=== PATIENT | male | born 1985 | race Caucasian/White ===

== ENCOUNTER 2021-02-01 22:49 | Observation (INO) ==
[2021-02-01] MEDS ORDERED: SODIUM CHLORIDE 0.9% 1,000 ML IV STA (23:12)
[2021-02-01] MEDS ORDERED: MORPHINE 4 MG/1 ML VIAL IV ONE (23:12)
[2021-02-01] MEDS ORDERED: ONDANSETRON 4 MG/2 ML VIAL IV ONE (23:12)
[2021-02-01 23:45] LABS: Basophils % 0.5 % (0.0-0.8); Eosinophils # 0.3 10*3/uL (0.0-0.87); Eosinophils % 3.9 % (0.00-10.9); Hematocrit 42.8 VOL% (42.0-52.0); Immature Granulocytes % 0.3 %; Immature Granulocytes Absolute 0.02 #; Lymphocytes # 1.8 10*3/uL (1.4-4.0); Lymphocytes % 22.8 % (21.2-54.2); Mean Corpuscular HGB Conc 32.7 GM/DL (32-36); Mean Platelet Volume 9.2 FL (9.6-12.0); Monocytes % 11.5 % (1.7-12.7); Platelet Count 292 T/CUMM (130-400); Red Blood Count 4.65 MC/CUMM (3.8-5.5); Red Cell Distribution Width 12.5 % (9.3-17.3)
[2021-02-02 00:08] LABS: Alanine Aminotransferase 24 U/L (16-61); Albumin 3.5 G/DL (3.4-5.0); Alkaline Phosphatase 92 U/L (45-117); Aspartate Amino Transferase 13 U/L (0-37); Bilirubin,Total < 0.39 MG/DL (0.2-1.0); Blood Urea Nitrogen 10 MG/DL (7-18); Calcium 8.6 MG/DL (8.5-10.1); Carbon Dioxide 28 MMOL/L (21-32); Estimated Glom Filtration Rate 136 ML/MIN; Glucose 113 MG/DL (74-106); Osmolality,Calculated 278.4 MOS/KG (273-304); Potassium 3.5 MMOL/L (3.5-5.1); Sodium 140 MMOL/L (136-145); Total Protein 7.2 G/DL (6.4-8.2)
[2021-02-02 01:09] LABS: Bilirubin,Urine Negative (Negative); Blood, Urine Negative (Negative); Glucose,Urine (UA) Negative (Negative); Ketones,Urine Negative (Negative); Mucus,Urine Occasional /LPF (Occasional); Nitrite,Urine Negative (Negative); Protein,Urine Negative; Urine Appearance CLEAR (Clear); Urine Color Yellow (Yellow); Urine Specific Gravity 1.012 (1.001-1.035); Urine Urobilinogen < 2.0 EU/DL (0.2-1.0)
[2021-02-02] MEDS ORDERED: ONDANSETRON 4 MG/2 ML VIAL IV PRN (01:53)
[2021-02-02] MEDS ORDERED: ACETAMINOPHEN 325 MG TABLET PO PRN (01:53)
[2021-02-02 04:40] LABS: Basophils % 0.5 % (0.0-0.8); Eosinophils # 0.2 10*3/uL (0.0-0.87); Eosinophils % 3.5 % (0.00-10.9); Hematocrit 39.5 VOL% (42.0-52.0); Hemoglobin 13.1 GM/DL (14.0-18.0); Immature Granulocytes % 0.2 %; Immature Granulocytes Absolute 0.01 #; Lymphocytes # 1.9 10*3/uL (1.4-4.0); Lymphocytes % 29.1 % (21.2-54.2); Mean Corpuscular HGB Conc 33.2 GM/DL (32-36); Mean Corpuscular Volume 91.4 FL (87-102); Monocytes % 11.5 % (1.7-12.7); Neutrophils % 55.2 % (38.7-73.9); Platelet Count 259 T/CUMM (130-400); Red Blood Count 4.32 MC/CUMM (3.8-5.5); Red Cell Distribution Width 12.5 % (9.3-17.3); White Blood Count 6.5 T/CUMM (4-12)
[2021-02-02 04:58] LABS: Alanine Aminotransferase 22 U/L (16-61); Alkaline Phosphatase 73 U/L (45-117); Aspartate Amino Transferase 9 U/L (0-37); Bilirubin,Total < 0.39 MG/DL (0.2-1.0); Blood Urea Nitrogen 9 MG/DL (7-18); Calcium 7.7 MG/DL (8.5-10.1); Carbon Dioxide 28 MMOL/L (21-32); Estimated Glom Filtration Rate 136 ML/MIN; Glucose 83 MG/DL (74-106); Osmolality,Calculated 278.3 MOS/KG (273-304); Potassium 4.2 MMOL/L (3.5-5.1); Sodium 141 MMOL/L (136-145); Total Protein 6.3 G/DL (6.4-8.2)
[2021-02-02] MEDS: LACTATED RINGERS 1,000 ML IV SCH ×3 (05:00→17:21)
[2021-02-02] MEDS: MORPHINE 4 MG/1 ML VIAL IV PRN ×3 (05:26→17:22)
[2021-02-02] MEDS: PANTOPRAZOLE 40 MG TABLET PO SCH (09:52)
[2021-02-02] MEDS: oxyCODONE/ACETAMINOPHEN 5-325 MG TABLET PO PRN ×2 (14:16→23:06)
[2021-02-03] MEDS: MORPHINE 4 MG/1 ML VIAL IV PRN (00:35)
[2021-02-03] MEDS: LACTATED RINGERS 1,000 ML IV SCH (05:11)
[2021-02-03 05:37] LABS: Basophils % 0.5 % (0.0-0.8); Eosinophils # 0.3 10*3/uL (0.0-0.87); Eosinophils % 5.2 % (0.00-10.9); Hematocrit 39.7 VOL% (42.0-52.0); Hemoglobin 13.1 GM/DL (14.0-18.0); Immature Granulocytes % 0.3 %; Immature Granulocytes Absolute 0.02 #; Lymphocytes # 2.3 10*3/uL (1.4-4.0); Lymphocytes % 39.9 % (21.2-54.2); Mean Corpuscular Volume 93.6 FL (87-102); Mean Platelet Volume 8.8 FL (9.6-12.0); Monocytes % 14.2 % (1.7-12.7); Neutrophils % 39.9 % (38.7-73.9); Platelet Count 256 T/CUMM (130-400); Red Blood Count 4.24 MC/CUMM (3.8-5.5); Red Cell Distribution Width 12.5 % (9.3-17.3); White Blood Count 5.7 T/CUMM (4-12)
[2021-02-03 06:08] LABS: Atypical Lymphocytes Few; Eosinophils 5 % (0-10); Hypochromasia 1+; Lymphocytes 42 % (20-55); Segmented Neutrophils 40 % (50-85); Total Cells Counted 100
[2021-02-03 06:09] LABS: Microcytosis 1+; Platelet Estimate Normal
[2021-02-03] MEDS: PANTOPRAZOLE 40 MG TABLET PO SCH (08:24)
[2021-02-03 11:59] VITALS: BP 133/78
== END 2021-02-03 13:44 ==
LOC: EDBD → EDUNIT# → N.EDINP 22:49 → N.ED 22:49 → N.3W 02-02 02:51
PROVIDERS: ADMIT Surgery; ATTEND Surgery